=== PATIENT | female | born 1985 | race Caucasian/White ===

== ENCOUNTER 2017-09-04 16:17 | Emergency (ER) | payer BC, MEDICAID ==
[2017-09-04 16:21] VITALS: BP 148/85
[2017-09-04] MEDS ORDERED: Cyclobenzaprine 10 MG Tab PO ONE (16:50)
[2017-09-04] MEDS ORDERED: Ketorolac 60 MG/2 ML SDV IM ONE (16:51)
[2017-09-04] MEDS ORDERED: Acetaminophen/oxyCODONE 325-5 MG Tab PO ONE (16:51)
--- NOTE | 2017-09-04 16:55 | EDM.PDOC ---
ED HPI GENERAL MEDICAL PROBLEM - General Chief Complaint: Back Pain or Injury Stated Complaint: BACK PAIN Time Seen by Provider: 09/04/17 16:52 Source of Information: Reports: Patient History Limitations: Reports: No Limitations - History of Present Illness INITIAL COMMENTS - FREE TEXT/NARRATIVE: pt had a sudden onset of severe pain in the lower back radiating down the left leg. This is a shooting pain. She states she was just pushing something in the truck and she suddenly developed severe pain in the left lower back. She is having trouble walking at this time. Onset: Sudden Duration: Hour(s):, Getting Worse Location: Reports: Back Associated Symptoms: Reports: Other (pain in the lower back. She has pain going down the left leg. This is shooting pain. ) Lower Back Pain Score (Numeric/FACES): 10 - Related Data Allergies Allergy/AdvReac Type Severity Reaction Status Date / Time Penicillins Allergy Hives Verified 11/05/15 19:58 Home Meds: Home Meds NK [No Known Home Meds] 09/28/14 [History] Past Medical History - Past Health History Medical/Surgical History: Denies Medical/Surgical History Other HEENT History: [place] x2 Musculoskeletal History: Reports: Fracture Other Musculoskeletal History: Ankle fracture childhood Social & Family History - Tobacco Use Smoking Status *Q: Current Every Day Smoker Years of Tobacco use: 10 Packs/Tins Daily: 0.5 Used Tobacco, but Quit: No Second Hand Smoke Exposure: Yes - Caffeine Use Caffeine Use: Reports: Coffee - Alcohol Use Days Per Week of Alcohol Use: 1 Number of Drinks Per Day: 3 Total Drinks Per Week: 3 - Recreational Drug Use Recreational Drug Use: No ED ROS GENERAL - Review of Systems Review Of Systems: See Below Constitutional: Reports: No Symptoms HEENT: Reports: No Symptoms Respiratory: Reports: No Symptoms Cardiovascular: Reports: No Symptoms Endocrine: Reports: No Symptoms GI/Abdominal: Reports: No Symptoms : Reports: No Symptoms Musculoskeletal: Reports: Other (pain in the lower back radiating down the left leg. ) Neurological: Reports: No Symptoms ED EXAM,LOWER BACK PAIN/INJURY - Physical Exam Exam: See Below Text/Narrative:: pt arrived with severe pain her lower back with pain radiating down the left leg. She has no severe injury. She has not had this kind of pain in the past. She was helping to push boxes in a truck and he felt like something gave and she has had the sharp pain since that time. Exam Limited By: No Limitations General Appearance: Alert, Anxious, Moderate Distress Ears: Normal TMs Nose: Normal Inspection Throat/Mouth: Normal Inspection Head: Atraumatic Neck: Normal Inspection Respiratory/Chest: No Respiratory Distress Cardiovascular: Regular Rate, Rhythm GI/Abdominal: Soft, Non-Tender (Female) Exam: Deferred Rectal (Female) Exam: Deferred Back Exam: Normal Inspection Extremities: Normal Inspection Neurological: Alert, Oriented x 3, Other (Pt has severe radicular pain going down the left leg. ) Course - Vital Signs Last Recorded V/S: Last Vital Signs Temp 35.9 C 09/04/17 16:20 Pulse 84 09/04/17 16:20 Resp 16 09/04/17 16:20 BP 148/85 H 09/04/17 16:20 Pulse Ox 98 09/04/17 16:20 - Orders/Labs/Meds Orders: Active Orders 24 hr Category Date Time Status Lumbar Spine 2 or 3V [CR] Stat Exams 09/04/17 17:17 Taken Meds: Medications Discontinued Medications Generic Name Dose Route Start Last Admin Trade Name Freq PRN Reason Stop Dose Admin Cyclobenzaprine HCl 10 mg 09/04/17 16:50 09/04/17 18:27 Flexeril PO 09/04/17 16:51 10 mg ONETIME ONE Administration Hydromorphone HCl 1 mg 09/04/17 17:57 09/04/17 18:27 Dilaudid IM 09/04/17 17:58 1 mg ONETIME ONE Administration Ketorolac Tromethamine 60 mg 09/04/17 16:51 09/04/17 17:28 Toradol IM 09/04/17 16:52 60 mg ONETIME ONE Administration Oxycodone/Acetaminophen 1 tab 09/04/17 16:51 09/04/17 18:07 Percocet 325-5 Mg PO 09/04/17 16:52 Not Given ONETIME ONE - Re-Assessments/Exams Free Text/Narrative Re-Assessment/Exam: 09/04/17 17:49 pt is so uncomfortable that she is not able to tolerate further films. She was given torodol 60mg im and this gave very little relief. She is unable to take more until she gets coverage in the lab. Pt will need to have an MRI with the radicular pain she is having if she does not get improvement. 09/04/17 17:51 Departure - Departure Time of Disposition: 18:35 Disposition: Home, Self-Care 01 Condition: Fair Clinical Impression: Acute sciatica - Discharge Information Instructions: Sciatica, [id number] Referrals: PCP,None [Primary Care Provider] - Forms: ED Department Discharge Care Plan Goals: flexeril 10mg !/2 tab qam and at noon, 10mg at hs. Motrin 600mg tid, percocet 5/ 325 q6h prn for pain, ice or heat to the area, rest, no work for the next 2-3 days. If not better by wednesday talk to me regarding getting a MRI of the lumbar spine - My Orders Last 24 Hours: My Active Orders 09/04/17 17:17 Lumbar Spine 2 or 3V [CR] Stat - Assessment/Plan Last 24 Hours: My Active Orders 09/04/17 17:17 Lumbar Spine 2 or 3V [CR] Stat
[2017-09-04] MEDS ORDERED: HYDROmorphone 1 MG/ML Syringe IM ONE (17:57)
--- NOTE | 2017-09-06 08:56 | CR ---
Lumbar Spine 2 or 3V HISTORY: severe pain in left lumbar area with radicular pain FINDINGS: There is mild lumbar scoliosis convex to the right. Lumbar vertebral bodies appear intact and in sati sfactory alignment. No compression fracture or is identified. There is mild narrowing of the disc sp alisia at L4-5. No other disc space narrowing is seen. Spinous processes, posterior elements, and pedicl es appear intact and in satisfactory alignment. Perivertebral soft tissues appear normal. IMPRESSION: Scoliosis convex to the right. Mild narrowing of the intervertebral disc is noted at L4-5. No acute l umbar spine abnormality is identified.
== END 2017-09-04 18:33 | disposition home or self-care (01) ==
LOC: JP.ED 16:17
DX: M54.42 Lumbago with sciatica, left side (principal); F17.210 Nicotine dependence, cigarettes, uncomplicated; Z88.0 Allergy status to penicillin
CPT/HCPCS: 72100; 96372; 99284; A9270; J1170; J1885

== ENCOUNTER 2019-06-17 00:45 | Emergency (ER) | payer BC ==
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
== END 2019-06-17 01:25 | disposition home or self-care (01) ==
LOC: JP.ED 00:45
CPT/HCPCS: 99283

== ENCOUNTER 2021-01-11 01:38 | Emergency (ER) | payer OTHER, MEDICAID ==
[2021-01-11] MEDS ORDERED: Ondansetron 4 MG Tab.DIS PO ONE (02:05)
[2021-01-11] MEDS ORDERED: Acetaminophen/HYDROcodone 325-7.5 MG Tab PO ONE (02:05)
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
[2021-01-11 03:29] VITALS: BP 116/80; PULSE 75
== END 2021-01-11 03:29 | disposition home or self-care (01) ==
LOC: JP.ED 01:38
DX: S02.2XXA Fracture of nasal bones, initial encounter for closed fracture (principal); S00.81XA Abrasion of other part of head, initial encounter; S80.211A Abrasion, right knee, initial encounter; S80.212A Abrasion, left knee, initial encounter; S60.812A Abrasion of left wrist, initial encounter; S40.811A Abrasion of right upper arm, initial encounter; F10.120 Alcohol abuse with intoxication, uncomplicated; J45.909 Unspecified asthma, uncomplicated; F17.210 Nicotine dependence, cigarettes, uncomplicated; Z88.0 Allergy status to penicillin; Z79.899 Other long term (current) drug therapy; V29.9XXA Motorcycle rider (driver) (passenger) injured in unspecified traffic accident, initial encounter
CPT/HCPCS: 70450; 70486; 99284; A9270